=== PATIENT | female | born 1965 | race Caucasian/White ===

== ENCOUNTER 2023-11-14 15:34 | Outpatient (AMB) | payer BC, SELFPAY ==
[2023-11-14 15:57] VITALS: BP 114/76; PULSE 95; O2SAT 97; BMI 37.1
--- NOTE | 2023-11-14 15:57 | HO.NEPHOV ---
Vital Signs 11/14/23 15:57 Height 5 ft 7 in Weight 237 lb BMI 37.1 BP 114/76 Blood Pressure Location Lt brachial Position Sitting Pulse 95 Pulse Source Pulse Oximeter Pulse Oximetry (%) 97 Oxygen Delivery Method Room Air Intake Visit Reasons: CKD/ Conf Preparation Operator Required: No Accompanied by: Mother Allergies erythromycin base Allergy (Verified 11/14/23 15:59) Unknown HPI Comments Details: I had the pleasure of seeing Mili in follow-up of her hypertension. Her blood pressure is currently well controlled on current medication regimen. She has not lost significant weight. She does not have any headache, visual disturbance, chest tightness, shortness of breath, paroxysmal nocturnal dyspnea, orthopnea, pedal edema or orthostatic symptoms. She does not take any nonsteroidal anti-inflammatories. She is compliant with low-sodium diet. There were no other new active complaints at the time of this office visit. [facility]MERLY [facility] Medical History (Updated 11/14/23 @ 16:00 by Rustam Michel MD) Hypertension Surgical History (Updated 11/14/23 @ 16:00 by Pamela Zelaya MA) History of partial colectomy Hx of hysterectomy Family History (Updated 11/14/23 @ 16:01 by Pamela Zelaya MA) Paternal Grandfather Cancer Father Cancer Mother Hypertension Review of Systems Const All systems reviewed & are unremarkable except as noted in HPI and below Physical Exam Const General: comfortable and no acute distress Orientation/consciousness: patient oriented x3 HEENT Head: Yes normocephalic Mouth: Normal oral and palatal mucosa present Eyes EOM: EOMs intact bilaterally Neck Neck: Yes supple Resp Auscultation: clear to auscultation bilaterally Cardio Jugular venous distension: no JVD Rate: regular rate GI Palpation (GI): Soft to palpation Auscultation: normal bowel sounds General: Yes no CVA tenderness Back/Spine/Pelvis Back: no CVA tenderness Skin General skin exam: no rashes or lesions noted Neuro General: patient oriented x3 and moves all extremities Extrem General: Yes no pedal edema Results Reviewed Nephrology Results: No Data to Display Assessment & Plan Assessment & Plan (1) Hypertension: Code(s): I10 - Essential (primary) hypertension Category: Medical Qualifiers: Hypertension type: primary hypertension Qualified Code(s): I10 - Essential (primary) hypertension Plan Mili has hypertension for some time. She tries to maintain a low-sodium diet. He has not lost any significant weight. Her renal functions have been normal. Her blood pressure is has been at goal at home on the current medication regimen. All the workup done in the past rule out secondary etiology including Doppler of renal arteries were normal. I did not make any medication changes today. She has not known to have any proteinuria. I ordered follow-up blood work. Answered all questions. Coding Level of Care Code Est Pt Level 4 (47303) Diagnoses Primary hypertension I10 Hypertension type: primary hypertension
== END 2023-11-14 16:29 | disposition home or self-care (01) ==
PROVIDERS: PCP Internal Medicine; Visit Provider Internal Medicine Nephrology
DX: I10 Essential (primary) hypertension (principal)
CPT/HCPCS: 99214

== ENCOUNTER → 2023-11-14 15:34 | Outpatient (BNVA) | payer BC, SELFPAY | PROVIDERS: PCP Internal Medicine; Visit Provider Internal Medicine Nephrology ==

== ENCOUNTER 2024-07-23 15:06 | Outpatient (AMB) | payer BC, SELFPAY ==
[2024-07-23 15:59] VITALS: BP 138/84; PULSE 102; O2SAT 97; BMI 36.8
--- NOTE | 2024-07-23 15:59 | HO.NEPHOV ---
Vital Signs 07/23/24 15:59 Height 5 ft 7 in Weight 235 lb BMI 36.8 BP 138/84 Blood Pressure Location Lt brachial Position Sitting Pulse 102 H Pulse Source Pulse Oximeter Pulse Oximetry (%) 97 Oxygen Delivery Method Room Air Intake Visit Reasons: CKD/LVM Excellence Specialist Required: No Accompanied by: Mother Allergies erythromycin base Allergy (Verified 07/23/24 16:03) Unknown Do you need a note to return to daycare/school/sports/work: No HPI Comments Details: Mili was seen in follow-up of her hypertension. Her blood pressure is currently well controlled on current medication regimen. She has not lost significant weight. She has a lot of family stressors especially taking care of her mom. She was emotionally labile discussing this during the visit. She has a lot of knee pain and needs a knee replacement but feels she cant get it done as there is no one to take care of mom if she has to go through surgery and rehab. She is wondering whether she can take NSAID's for symptom relief( knee pain). She does not have any headache, visual disturbance, chest tightness, shortness of breath, paroxysmal nocturnal dyspnea, orthopnea, pedal edema or orthostatic symptoms. She is compliant with low-sodium diet. There were no other new active complaints at the time of this office visit. [facility] Medical History Hypertension Surgical History History of partial colectomy Hx of hysterectomy Family History Paternal Grandfather Cancer Father Cancer Mother Hypertension Review of Systems Const All systems reviewed & are unremarkable except as noted in HPI and below Physical Exam Vital Signs: Last Vital Signs Pulse 102 H 07/23/24 15:59 BP 138/84 07/23/24 15:59 Pulse Ox 97 07/23/24 15:59 Oxygen Delivery Method Room Air 07/23/24 15:59 BMI result Body Mass Index 36.8 Const General: comfortable and no acute distress Orientation/consciousness: patient oriented x3 HEENT Head: Yes normocephalic Mouth: Normal oral and palatal mucosa present Eyes EOM: EOMs intact bilaterally Neck Neck: Yes supple Resp Auscultation: clear to auscultation bilaterally Cardio Jugular venous distension: no JVD Rate: regular rate GI Palpation (GI): Soft to palpation Auscultation: normal bowel sounds General: Yes no CVA tenderness Back/Spine/Pelvis Back: no CVA tenderness Skin General skin exam: no rashes or lesions noted Neuro General: patient oriented x3 and moves all extremities Extrem General: Yes no pedal edema Results Reviewed Nephrology Results: No Data to Display Assessment & Plan Assessment & Plan (1) Hypertension: Code(s): I10 - Essential (primary) hypertension Category: Medical Qualifiers: Hypertension type: primary hypertension Qualified Code(s): I10 - Essential (primary) hypertension Plan Mili has hypertension for some time. She tries to maintain a low-sodium diet. He has not lost any significant weight. Her renal functions have been normal. Her blood pressure is has been at goal at home on the current medication regimen. All the workup done in the past rule out secondary etiology including Doppler of renal arteries were normal. I did not make any medication changes today. She has not known to have any proteinuria. I ordered follow-up blood work. Answered all questions. Orders: Orders Creatinine 8 Months I10 - Essential (primary) hypertension Blood Urea Nitrogen 8 Months I10 - Essential (primary) hypertension Electrolytes 8 Months I10 - Essential (primary) hypertension Coding Level of Care Code Est Pt Level 4 (93003) Diagnoses Primary hypertension I10 Hypertension type: primary hypertension
--- OUTSIDE RECORDS SUMMARY | 2024-07-23 18:42 | XMS_ITS | Clinical Summary ---
Author Organization [facility] Address [address] [place] [address] Phone Care Team Providers Care Food Crops Farm Hand Name Role Phone Hector Copeland MD Primary Care Provider [phone] Allergies Active Allergy Reactions Criticality Noted Date Comments Erythromycin Other (see comments) 10/14/2020 Medications Probiotic Product (PROBIOTIC-10 PO) Take 1 capsule by mouth 1 (one) time each day Active desipramine (NORPRAMIN) 50 MG tablet Take 1 tablet by mouth at bed time Active Estradiol 10 MCG tablet 1 tablet 2 (two) times a week Active Melatonin 5 MG tablet Take 1 tablet by mouth 1 (one) time each day Active losartan (COZAAR) 25 MG tablet TAKE 1 TABLET IN THE MORNING AND EVENING 180 tablet 3 10/02/2022 Active Active Problems Problem Noted Date Diagnosed Date Diverticulitis 12/22/2019 Chronic interstitial cystitis 11/06/2018 Flank pain 11/16/2017 Diverticular disease 08/17/2017 Essential hypertension 08/17/2017 Hyperlipidemia 08/17/2017 Pure hypercholesterolemia 08/17/2017 Immunizations Name Administration Dates Next Due Influenza, Quadrivalent, Preservative Free 02/17 Td, Not Adsorbed 06/28/2006 Tdap 04/30/2012 Family History Medical History Relation Comments Hypertension Father Hypertension Mother Relation Status Comments Father Alive Mother Alive Social History Tobacco Use Types Packs/Day Years Used Date Smoking Tobacco: Never Smokeless Tobacco: Never Tobacco Cessation:Counseling Given: Not Answered Alcohol Use Standard Drinks/Week Comments Yes 0 (1 standard drink = 0.6 oz pure alcohol) Alcoholic Drinks/day: Occasional social drink Comments Unknown Sex and Gender Information Value Date Recorded Sex Assigned at Not on file Legal Sex Female 5:07 PM EST Gender Identity Not on file Sexual Orientation Not on file Last Filed Vital Signs Vital Sign Reading Time Taken Comments Blood Pressure 104/70 11/08/2022 3:16 PM EDT Pulse 80 11/08/2022 3:16 PM EDT Temperature - - Respiratory Rate - - Oxygen Saturation 98% 10/15/2020 3:26 PM EDT Inhaled Oxygen Concentration - - Weight 102 kg (225 lb 12.8 oz) 10/26/2021 3:11 P M EDT Height 170.2 cm (5' 7 ) 10/01/2019 12:00 PM EDT Body Mass Index 35.37 10/01/2019 12:00 PM EDT Plan of Treatment Health Maintenance Due Date Last Done Comments Breast Cancer Screening 1965 Pneumococcal Vaccine: Pediatrics (0 to 5 Years) and At-Risk Patients (6 to 64 Years) (1 of 2 - PCV) 1969 Colorectal Cancer Screening: Annual FOBT 2012 Colorectal Cancer Screening: Colonoscopy 2012 Colorectal Cancer Screening: Sigmoidoscopy 2012 Influenza Vaccine (#1) 2024 , 02/18/2020 Hepatitis B Vaccine Aged Out No longe r eligible based on patient's age to complete this topic Insurance [facility] Care Teams Food Crops Farm Hand Relationship Specialty Start Date End Date Hector Copeland MD [address] [place] [id number] PCP - General 06/07/20
--- OUTSIDE RECORDS SUMMARY | 2024-07-23 18:42 | XMS_ITS | Encounter Summary ---
Author Organization [facility] Address [phone] [facility] [place] [address] Care Team Providers Care Superintendent Custodian Janitor Name Role Phone Hector Copeland MD Primary Care Provider [phone] Hector Copeland MD Unavailable [phone] Binta Vera NP Unavailable [phone] Rustam Michel MD Unavailable Encounter Details Date Type Department Care Team (Late st Contact Info) Description 08/20/2019 Procedure Pass [facility] Endoscopy Admitting Dept Virtual Department [address] [place] [address] [phone] Social History Tobacco Use Types Packs/Day Years Used Date Smoking Tobacco: Never Smokeless Tobacco: Never Alcohol Use Standard Drinks/Week Comments No 0 (1 standard drink = 0.6 oz pur e alcohol) Sex and Gender Information Value Date Recorded Sex Assigned at Female 06/23/2019 2:22 PM EST Gender Identity Female 06/23/2019 2:22 PM EST Sexual Orientation Straight 06/23/2019 2: 22 PM EST documented as of this encounter Plan of Treatment Upcoming Encounters Date Type Department Care Team (Late Contact Info) Description 07/24/2024 3:00 PM EST Office Visit [facility] Internal Medicine [address] [place], [place] [phone] Hector Copeland MD [address] [place], [place] [phone] 08/29/2024 1:00 PM EDT Office Visit [facility] Orthopedics & Sports Medicine [address] [place] [phone] Pancho Pierce PA-C [address] [place] [address] [place] [phone] documented as of this encounter Visit Diagnoses Not on filedocumented in this encounter Additional Health Concerns Infection Onset Date Last Indicated Resolved Time CoV-Risk Comment:Per Ambulatory Triage Form 06/10/2021 06/10/202106/11 4:30 PM EST CoV-Exposed Comment:Positive COVID-19 06/10/2021 06/10/2021 06/11/2021 4:3 0 PM EST COVID-19 06/10/2021 06/10/2021 07/01/2021 1:24 AM EST CoV-Risk 05/14/2022 05/14/2022 05/25/2022 1:22 AM EST Assessment Noted Time PHQ-2 Depression Total Score: 0 12/07/19 1:29 PM EDT documented as of this encounter Care Teams Superintendent Custodian Janitor Relationship Specialty Start Date End Date Hector Copeland MD [address] [place] [address] PCP - General 03/12/17 Hector Copeland MD [address] [place] [address] Insurance Assigned Provider 09/01/23 Binta Vera NP [address] [place] [address] [phone] Gynecology 12/06/18 Rustam Michel MD [address] [place] [address] Nephrology 12/06/18 documented as of this encounter Additional Source Comments The information contained in this document represents components of the legal health record. It is not the complete legal health record.[facility]
--- OUTSIDE RECORDS SUMMARY | 2024-07-23 18:42 | XMS_ITS | Encounter Summary ---
Author Organization [facility] Address [address] [facility] [address] [place] [address] Phone Care Team Providers Care Intermodal Dispatcher Name Role Phone Hector Copeland MD Primary Care Provider [phone] Reason for Visit * Reason Comments Med Refill Encounter Details Date Type Department Care Team ([facility] st Contact Info) Description 09/19/2023 Refill [facility] [address] [facility] [address] [place] [address] Isidoro Stuart MD [address] [facility] [address] [place] [address] Social History Tobacco Use Types Packs/Day Years Used Date Smoking Tobacco: Never Smokeless Tobacco: Never Alcohol Use Standard Drinks/Week Comments Yes 0 (1 standard drink = 0.6 oz pure alcohol) Alcoholic Drinks/day: Occasional social drink Comments Unknown Sex and Gender Information Value Date Recorded Sex Assigned at Not on file Legal Sex Female 5:07 PM EST Gender Identity Not on file Sexual Orientation Not on file documented as of this encounter Plan of Treatment Not on file documented as of this encounter Visit Diagnoses Not on filedocumented in this encounter Care Teams Intermodal Dispatcher Relationship Specialty Start Date End Date Hector Copeland MD [address] [place], [place] [phone] PCP - General 06/07/20 documented as of this encounter
--- OUTSIDE RECORDS SUMMARY | 2024-07-23 18:42 | XMS_ITS | Encounter Summary ---
Author Organization [facility] Address [address] [facility] [address] [place] [address] [place] [address] Phone Care Team Providers Care Process Equipment Operator Name Role Phone Hector Copeland MD Primary Care Provider [phone] Reason for Visit * Reason Onset Date Comments RX refill Losartan 10/17/2021 Encounter Details Date Type Department Care Team ([facility] st Contact Info) Description 10/17/2021 Telephone [facility] [address] [facility] [address] [place] [address] Estephania Daniel RX refill Losartan Social History Tobacco Use Types Packs/Day Years [...] on file documented as of this encounter Miscellaneous Notes * Telephone Encounter - Isidoro Stuart MD - 10/19/2021 4:08 PM EDT Pls tell her I sent it in * Telephone Encounter - Estephania Daniel - 10/17/2021 12:08 PM EDT Pt called requesting that a refill on her Losartan be sent to [facility]. documented in this encounter Plan of Treatment Not on file documented as of this encounter Visit Diagnoses Not on filedocumented in this encounter Care Teams Process Equipment Operator Relationship Specialty Start Date End Date Hector Copeland MD [address] [place] [address] PCP - General 06/07/20 documented as of this encounter
--- OUTSIDE RECORDS SUMMARY | 2024-07-23 18:42 | XMS_ITS | Encounter Summary ---
Author Organization [facility] Address [phone] [facility] [place] [address] Care Team Providers Care Cradle Placer Name Role Phone Hector Copeland MD Unavailable [phone] Hector Copeland MD Primary Care Provider [phone] Joyce Mahan CHARGEMASTER ANALYST Unavailable Kourtney Gardiner CHARGEMASTER ANALYST Unavailable [phone] Joselin Chowdhury MD Unavailable Cecilia Rudolph CHARGEMASTER ANALYST Unavailable Hector Copeland MD Unavailable [phone] Binta Vera CHARGEMASTER ANALYST Unavailable Rustam Michel MD Unavailable Encounter Details Date Type Department Care Team (Latest Contact Info) Description 04/10/2017 Transcribe Orders [facility] [address] [place] [address] Rustam Michel MD [address] [place] [address] [phone] Essential hypertension, benign (Primary Dx) Social History Tobacco Use Types Packs/Day Years Used Date Smoking Tobacco: Never Assessed Sex and Gender Information Value Date Recorded Sex Assigned at Female 06/23/2019 2:22 PM EST Gender Identity Female 06/23/2019 2:22 PM EST Sexual Orientation Straight 06/23/2019 2: 22 PM EST documented as of this encounter Plan of Treatment Upcoming Encounters Date Type Department Care Team (Late st Contact Info) Description 07/24/2024 3:00 PM EST Office Visit [facility] Internal Medicine [address] [place] [address] Hector Copeland MD [address] [place], [place] [email or web address] 08/29/2024 1:00 PM EDT Office Visit [facility] Orthopedics & Sports Medicine [address] [place] [address] Pancho Pierce PA-C [address] [place] [address] [place] [address] [email or web address] documented as of this encounter Visit Diagnoses Diagnosis Essential hypertension, benign- Primary Screening for human immunodeficiency virus- Primary Special screening examination for other specified viral diseases documented in this encounter Additional Health Concerns Infection Onset Date Last Indicated Resolved Time CoV-Risk Comment:Per Ambulatory Triage Form 06/10/2021 06/10/202106/11 4:30 PM EST CoV-Exposed Comment:Positive COVID-19 06/10/2021 06/10/2021 06/11/2021 4:3 0 PM EST COVID-19 06/10/2021 06/10/2021 07/01/2021 1:24 AM EST CoV-Risk 05/14/2022 05/14/2022 05/25/2022 1:22 AM EST documented as of this encounter Care Teams Cradle Placer Relationship Specialty Start Date End Date Hector Copeland MD [address] [place], [place] PCP - General 03/12/17 Hector Copeland MD [address] [place], [place] Historical LMR Provider 03/17/17 12/05/18 Joyce Mahan NP [address] [place] [address] Historical LMR Provider 03/17/17 Kourtney Gardiner NP [address] [place] [address] Historical LMR Provider 03/17/17 12/05/18 Joselin Chowdhury MD [address] [place] [address] Orthopedics & Sports Medicine, [place] [address] Historical LMR Provider 03/17/1712/05 Cecilia Rudolph NP [address] [place] [address], [address] [place] [address] Historical LMR Provider 03/17/1712/05 Hector Copeland MD [address] [place] [address] Insurance Assigned Provider 09/01/23 Binta Vera NP [address] [place] [address] Gynecology 12/06/18 Rustam Mihcel MD [address] [place] [address] Nephrology 12/06/18 documented as of this encounter Additional Source Comments The information contained in this document represents components of the legal health record. It is not the complete legal health record.[facility]
--- OUTSIDE RECORDS SUMMARY | 2024-07-23 18:42 | XMS_ITS | Data Portability ---
Author Organization [facility], , [facility] Address [address] [place] [address] Assessment No assessment recorded. Plan of Treatment Reminders Order Date Submit Date Provider Last Modified By Organization Details Last Modified Time Details Appointments None record ed. Lab None record ed. Referral None record ed. Procedures None record ed. Surgeries None record ed. Imaging None record ed. Medication Orders None record ed. Patient TargetsNo targets recorded. Patient InstructionsNo instructions recorded. Reason for Referral None Reported. Procedures Surgical History Date Name Laterality Status Provider Name and Address Organization Details Recorded Time 0 Samantha - Colonoscopy completed Ferdinand Singh MD [address] [place] [address], [id number], [facility] 11/26/2019 14:12:14 5 Kody - Colonoscopy completed Jm Gates MD [address] [place] [address], [phone], [facility] 02/26/2015 08:08:55 Imaging Results None recorded. Procedure Notes None recorded. Medical Equipment None Reported. Allergies No known drug allergies Medications Name Sig Start Date Stop Date Status Note LastModified by Organization Details LastModified Time cyclobenzaprine 10 mg tablet active Not Available Not Available Not Available prednisone 10 mg tablet active Not Available Not Available Not Available estradiol 0.05 mg/24 hr weekly transdermal patch active Not Available Not Avai lable Not Available metronidazole 500 mg tablet active Not Available Not Available No t Available butalbital-acetam inophen-caffeine 50 mg-325 mg-40 mg tablet active Not Available Not Available No t Available lidocaine-priloca ine 2.5 %-2.5 % topical cream active Not Available Not Availabl e Not Available estradiol 1 mg tablet active Not Available Not Available Not Available desipramine 50 mg tablet active Not Available Not Available Not Available losartan 25 mg tablet active Not Available Not Available Not Available diclofenac sodium 75 mg tablet,delayed release active Not Available Not Available Not Available levofloxacin 500 mg tablet active Not Available Not Available No t Available metoclopramide 10 mg tablet active Not Available Not Available No t Available oxycodone 5 mg tablet active Not Available Not Available Not Available magnesium active Not Available Not Bernie ilable Not Available Fioricet active Not Available Not Avai lable Not Available estradiol 10 mcg vaginal tablet active Not Available Not Availab le Not Available Yuvafem active Not Available Not Avail able Not Available Plenvu 140 gram-9 gram-5.2 gram powder packs active Not Available Not Available Not Available Vitals None Recorded Social History None recorded. Functional Status None recorded. Mental Status None recorded. Family History Nothing Reported. Medical History No medical history recorded. Gynecological HistoryNo gynecological history recorded. Obstetrics History GPAL:G 0 P 0 0 0 0 Past Encounters Encounter ID Performer Location Encounter Start Date Encounter Closed Date Diagnosis/Indication Diagnosis SNOMED-CT Code Diagnosis ICD10 Code Diagnosis Note [id number] [facility], [address] [address] 02/26/2015 06:42:41 02/26/2015 13:44:58 [id number] Flora Clarke RN [facility], [address] [address] 11/26/2019 12:25:59 11/26/2019 14:38:36 Health Concerns Section Related Observation LastModified by Organization Detai ls LastModified Time None Recorded Concern Status LastModified by Organization Details LastModified Time None Recorded Advance Directives Directive None Recorded Payers Encounter Date Sequence Insurance Name Policy Number Policy Louie Covered Member ID Louie Member ID Guarantor Name 02/26/2015 1 [facility]: [facility] [id number] Mili A Grzegorz [id number] Mili Grzegorz 11/26/2019 1 [facility]: [facility] ([facility] [id number] Mili A Grzegorz [id number] Mili Grzegorz OBGyn Episode No OBEpisode recorded.
--- OUTSIDE RECORDS SUMMARY | 2024-07-23 18:42 | XMS_ITS | Encounter Summary ---
Author Organization [facility] Address [phone] [facility] [place] [address] Care Team Providers Care Insert Molding Operator Name Role Phone Hector Copeland MD Primary Care Provider [phone] Hector Copeland MD Unavailable [phone] Binta Vera NP Unavailable [phone] Rustam Michel MD Unavailable Encounter Details Date Type Department Care Team (Late st Contact Info) Description 12/22/2019 Procedure Pass OR Admitting Dept - Virtual Department [address] [place] [address] [phone] Social History Tobacco Use Types Packs/Day Years [...] Description 07/24/2024 3:00 PM EST Office [facility] Internal Medicine [address] [place], [place] [phone] Hector Copeland MD [address] [place], [place] [phone] 08/29/2024 1:00 PM EDT Office Visit [facility] Orthopedics & Sports Medicine [address] [place] [address] Pancho Pierce PA-C [address] [place] [address] [place] [address] documented as of this encounter Visit Diagnoses [...] documented as of this encounter Care Teams Insert Molding Operator Relationship Specialty Start Date End Date Hector Copeland MD [address] [place] [address] PCP - General 03/12/17 Hector Copeland MD [address] [place] [address] 92254 Insurance Assigned Provider 09/01/23 Binta Vera NP [address] [place] [address] [phone] Gynecology 12/06/18 Rustam Michel MD [address] [place] [address]25 Nephrology 12/06/18 documented as of this encounter Additional Source Comments The information contained in this document represents components of the legal health record. It is not the complete legal health record.[facility]
--- OUTSIDE RECORDS SUMMARY | 2024-07-23 18:42 | XMS_ITS | Clinical Summary ---
Author Organization [facility] Address [phone] [address] [place] [address] Care Team Providers Care Manager Billing Name Role Phone Hector Copeland MD Primary Care Provider [phone] Hector Copeland MD Unavailable [phone] Binta Vera NP Unavailable [phone] Rustam Michel MD Unavailable Allergies No known active allergies Medications Medication Sig Dispensed Refills Start Date End Date Status losartan (COZAAR) 25 MG tablet 1 tablet Orally Twice a day Active YUVAFEM 10 mcg Tab 2 (two) times a week. 10/23/2017 Active cholecalciferol (VITAMIN D3) 2,000 unit capsule Take 2,000 Units by mouth daily. Active diclofenac sodium (VOLTAREN) 1 % Gel Apply 4 g topically 2 (two) times a day. 100 g 04/05/2020 Active Additional Information Patient not taking.Reported on 12/18/2023 MAGNESIUM GLYCINATE ORALIndications:90 mg per capsule Take 2 capsules by mouth nightly at bedtime. Indications: 90 mg per capsule Active acetaminophen (TYLENOL) 650 MG CR tablet Take 1,300 mg by mouth every other day. More while working and while being more active Active butalbital-acetamin ophen-caffeine (FIORICET, ESGIC) 50-325-40 mg per tablet Take 1 tablet by mouth 2 (two) times a day as needed for pain (specific location in comments). 30 tablet 4 05/27/2024 Active Hospital, Clinic, or Other Facility Administered Medication Ordered Dose Route Frequency Start Date End Date Status lidocaine (XYLOCAINE) 1% injection 3 mL 3 mL Infil Once 04/29/2024 07/28/2024 Active lidocaine (XYLOCAINE) 1% injection 4 mL 4 mL Infil Once 04/29/2024 07/28/2024 Active triamcinolone acetonide (KENALOG-40) 40 mg/mL injection 40 mg 40 mg IM Once 04/29/2024 07/28/2024 Active Active Problems Problem Noted Date Diagnosed Date Diverticulitis 12/22/2019 Interstitial cystitis 11/06/2018 Flank pain 11/16/2017 Diverticulosis 08/17/2017 Essential hypertension 08/17/2017 Hyperlipidemia 08/17/2017 Pure hypercholesterolemia 08/17/2017 Encounters Date Type Department Care Team Description 07/18/2024 Telephone [facility] Internal Medicine [address] [place] [address] Hector Copeland MD Review of Orders 04/29/2024 1:30 PM EST Office Visit [facility] Orthopedics & Sports Medicine [address] [place] [address] Nikita Saldaña PA-C Bombardier, Mark, PA-C Primary osteoarthritis of left knee (Primary Dx) from Last 3 Months Immunizations Name Administration Dates Next Due Influenza Quadrivalent MDCK Preservative Free IM 03/14/2023 Influenza Quadrivalent Preservative Free IM 02/25,02/18/2020 Influenza Trivalent MDCK Preservative Free IM MMR 04/12/2011 Td (adult) 5 Lf Tetanus Toxoid, PF, Adsorbed Td (adult), not adsorbed 06/28/2006 Tdap 04/30/2012 Zoster recombinant 07/31/2021,03/09/2021 Family History Medical History Relation Comments Lung cancer Father Hypertension Mother Relation Status Comments Father Mother Alive Social History Tobacco Use Types Packs/Day Years Used Date Smoking Tobacco: Never Smokeless Tobacco: Never Tobacco Cessation:Counseling Given: Not Answered Alcohol Use Standard Drinks/Week Comments Yes 0 (1 standard drink = 0.6 oz pur e alcohol) 2 x year Child or Family Care Answer Date Record ed Do you have problems with on e of the following making it difficult for you to work, study, or receive health care? No 07/18/2024 Education Answer Date Recorded Are you interested in help w ith more adult education (for example, completing high school, GED, job training, learning the Welsh language, technical skills, or developing parenting skills)? No 07/18/2024 Are you concerned about learning? Not on file 07/18/2024 No 07/18/2024 Yes 07/18/2024 Food Answer Date Recorded Within the past 6 months we worried whether our food would run out before we got money to buy more. Never True 07/18/2024 Within the past 6 months the food we bought just didn't last and we didn't have enough money to get more. Never True Residential Stability Answer Date Recor ded What is your housing situation today? I have eric yates 07/18/2024 How many times have you move d in the past 12 months? Zero (I did not move) 07/18/2024 Paying for Meds Answer Date Recorded Do you have trouble paying for medicines? No 07/18/2024 Paying Utility Bills Answer Date Record ed Do you have trouble paying your heating or elect ricity bill? No 07/18/2024 Transportation Answer Date Recorded Has the lack of transportati on kept you from medical appointments or from getting medications? No 07/18/2024 Digital Access Answer Date Recorded No 07/18/2024 Yes 07/18/2024 Do you have reliable internet access at home? Ye s 07/18/2024 Do you have a device (e.g., phone, tablet, computer) with a working camera? Yes 07/18/2024 Intimate Partner Violence Answer Date R ecorded Denied Basic Needs Not on file 07/18/2024 In the past 12 months have y ou been in a relationship with a person who hurts, threatens, or tries to control you? No 07/18/2024 Worried food would run out Not on file 07/18 In the past 12 months have y ou been in a relationship with a person who hurts, threatens, or tries to control you? No 07/18/2024 Sex and Gender Information Value Date Recorded Sex Assigned at Female 06/23/2019 2:22 PM EST Gender Identity Female 06/23/2019 2:22 PM EST Sexual Orientation Straight 06/23/2019 2: 22 PM EST Last Filed Vital Signs Vital Sign Reading Time Taken Comments Blood Pressure 130/78 01/17/2024 10:39 AM EDT Pulse 93 01/17/2024 10:39 AM EDT Temperature 36.4 ??C (97.5 ??F) 01/17/2024 1 0:39 AM EDT Respiratory Rate 12 01/17/2024 10:3 9 AM EDT Oxygen Saturation 98% 01/17/2024 10: 39 AM EDT Inhaled Oxygen Concentration - - Weight 106.7 kg (235 lb 3.2 oz) 024 10:39 AM EDT Height 167.9 cm (5' 6.1 ) 01/17/2024 10 :39 AM EDT Body Mass Index 37.85 01/17/2024 10:39 AM EDT Plan of Treatment Upcoming Encounters Date Type Department Care Team (Late st Contact Info) Description 07/24/2024 3:00 PM EST Office Visit [facility] Internal Medicine [address] [place] [address] Hector Copeland MD [address] [place] [address] 08/29/2024 1:00 PM EDT Office Visit [facility] Orthopedics & Sports Medicine [address] [place] [address] Pancho Pierce PA-C [address] [place] [address] [place] [address] Health Maintenance Due Date Last Done Comments HEPATITIS B SCREENING 1981 HEPATITIS C SCREENING 1981 HIV ONE-TIME SCREENING (18-65 YEARS) 1981 COLOGUARD 2008 FIT TEST 2008 FOBT 2008 SIGMOIDOSCOPY 2008 VIRTUAL COLONOSCOPY 2008 PNEUMOCOCCAL VACCINES (50+ years) (1 of 1 - PCV) 2013 PAP SMEAR 03/20/2022 03/20/2017, 09/02/2013 COVID-19 VACCINE ( season) 2024 08/05/2020 BLOOD PRESSURE 07/19/2024 01/17/2024 CREATININE LEVEL 12/16/2024 12/17/2023, 11/2022, 10/12/2021, Additional history exists POTASSIUM LEVEL 12/16/2024 12/17/2023, 08/0 11/2022, 10/12/2021, Additional history exists DEPRESSION SCREENING 07/18/2025 07/18/2024 MAMMOGRAM 12/04/2025 12/05/2023, 070 01/2019, 11/23/2016 SCREENING FOR DIABETES 12/16/2026 12/17/2023 LIPID PANEL 12/16/2028 12/17/2023, 11/25, 12/09/2018, Additional history exists COLONOSCOPY 11/25/2029 11/26/2019, 02/26/2015 COLORECTAL CANCER SCREENING 11/25/2029 Adult Td,Tdap Booster 01/16/2034 01/17/2024 , 04/30/2012, 06/28/2006 RSV VACCINE (1 - 1-dose 75+ series) 2038 ZOSTER VACCINES Completed 07/31/2021, 03/09/2021 SMOKING STATUS SCREENING (Once After 26 Yrs) Completed 01/17/2024 INFLUENZA VACCINE Completed 03/15/2024, , 03/09/2021, Additional history exists HEPATITIS A VACCINES Aged Out No long er eligible based on patient's age to complete this topic HEPATITIS B VACCINES Aged Out No long er eligible based on patient's age to complete this topic HIB VACCINES Aged Out No longer eligi ble based on patient's age to complete this topic MENINGOCOCCAL VACCINES (ACWY) Aged Out No longer eligible based on patient's age to complete this topic Medical Devices Not on file Procedures Procedure Name Priority Date/Time Associated Diagnosis Comments LIPID PANEL Routine 12/17/2023 8:41 AM EDT Benign essential hypertension COMPREHENSIVE METABOLIC PANEL Routine 12/17/2023 8:41 AM EDT Chronic pain of left knee Benign essential hypertension HM MAMMOGRAPHY Routine 12/05/2023 COLONOSCOPY FOR RESULT ENTRY ONLY Routine 11/26/2019 PAP SMEAR FOR RESULT ENTRY ONLY Routine 03/20/2017 from Last 3 Months or Most Recently Relevant to Health Maintenance Results * (ABNORMAL) Comprehensive metabolic panel (12/17/2023 8:41 AM EDT) SODIUM 141 133 - 146 mmol/L [facility] POTASSIUM 4.4 3.3 - 5.1 mmol/L [facility] CHLORIDE 104 96 - 108 mmol/L [facility] CO2 26 21 - 35 mmol/L [facility] BUN 16 6 - 19 mg/dL [facility] CREATININE 0.60 0.5 - 1.5 mg/dL [facility] GLUCOSE 101(H) 70 - 99 mg/dL [facility] ALBUMIN 4.1 3.9 - 4.8 g/dL [facility] TOTAL PROTEIN 6.9 6.5 - 8.0 g/dL [facility] CALCIUM 9.4 8.4 - 10.3 mg/dL [facility] ALKALINE PHOSPHATASE 49 39 - 117 U/L [facility] TOTAL BILIRUBIN 1.2 0.0 - 1.2 mg/dL [facility] AST 21 0 - 37 U/L [facility] ALT 16 0 - 40 U/L [facility] GLOBULIN 2.8 1 - 4.8 g/dL [facility] EGFR 103 >59 mL/min/1.7 3m2 [facility] Comment:Estimated glomerular filtration rate calculated using the CKD-EPI refit equation. ANION GAP 15 10 - 20 mmol/L [facility] Blood 12/17/2023 8:41 AM EDT 12/17/2023 8:46 AM EDT Hector Copeland MD LAB BLOOD ORDERABLES [facility] [address] [place] [address] * (ABNORMAL) Lipid panel (12/17/2023 8:41 AM EDT) HDL 64 mg/dL [facility] Comment: ? Interpretation <40 mg/dL: Low HDL cholesterol (major risk factor for CHD) Greater than or equal to 60 mg/dL: High HDL cholesterol ( negative risk factor for CHD) HDL - cholesterol is affected by a number of factors, e.g. smoking, excerise, hormones, sex and age. CHOLESTEROL 229 0 - 240 mg/dL [facility] TRIGLYCERIDES 117 30 - 160 mg/dL [facility] LDL 142(H) 50 - 129 mg/dL [facility] Comment: LDL levels in terms of risk for coronary heart disease: <100 mg/dL: Optimal 100-129 mg/dL: Near or above optimal 130-159 mg/dL: Borderline high 160-189 mg/dL: High >190 mg/dL: Very High CARDIAC RISK RATIO 3.6 3.3 - 4.4 C [facility] Blood 12/17/2023 8:41 AM EDT 12/17/2023 8:46 AM EDT Hector Copeland MD LAB BLOOD ORDERABLES [facility] [address] [place] [address] * MAMMOGRAPHY FOR RESULT ENTRY ONLY (12/05/2023) Mammogram BIRADS 1 Historical Provider MD SURESH CABALLERO E * COLONOSCOPY FOR RESULT ENTRY ONLY (11/26/2019) Historical Provider MD SURESH CABALLERO E * PAP SMEAR FOR RESULT ENTRY ONLY (03/20/2017) Pap smear NILM, HPV negative Historical Provider MD SURESH Ortiz from Last 3 Months or Most Recently Relevant to Health Maintenance Advance Directives Documents on File Type Date Recorded 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 12/24/2019 10:40 AM * Full Code (Presumed) (Latest Code Status on File) Date Activated Date Inactivated Comments 12/22/2019 1:09 PM * Full Code (Presumed) Date Activated Date Inactivated Comments 12/22/2019 6:15 AM 12/22/2019 1:09 PM Care Teams Manager Billing Relationship Specialty Start Date End Date Hector Copeland MD [address] [place] [address] [email or web address] PCP - General 03/12/17 Hector Copeland MD [address] [place] [address] [email or web address] Insurance Assigned Provider 09/01/23 Binta Vera NP [address] [place] [address] Gynecology 12/06/18 Rustam Michel MD [address] [place] [address] Nephrology 12/06/18 Additional Source Comments The information contained in this document represents components of the legal health record. It is not the complete legal health record.[facility]
--- OUTSIDE RECORDS SUMMARY | 2024-07-23 18:42 | XMS_ITS | Encounter Summary ---
Author Organization [facility] Address [phone] [address] [place] [address] Care Team Providers Care Highway Technician Name Role Phone Hector Copeland MD Primary Care Provider [phone] Hector Copeland MD Unavailable [phone] Binta Vera NP Unavailable [phone] Rustam Michel MD Unavailable Encounter Details Date Type Department Care Team (Latest Contact Info) Description 11/19/2019 Transcribe Orders Virtual Department [address] [place] [address] Ferdinand Singh MD [address] [place] [address] [phone] [email or web address] Encounter for pre-operative laboratory testing (Primary Dx) Social History Tobacco Use Types [...] Upcoming Encounters Date Type Department Care Team ( Contact Info) Description 07/24/2024 3:00 PM EST Office Visit [facility] Internal Medicine [address] [place] [address] Hector Copeland MD [address] [place] [address] [email or web address] 08/29/2024 1:00 PM EDT Office Visit [facility] Orthopedics & Sports Medicine [address] [place] [address] Pancho Pierce PA-C [address] [place] [address] [place] [address] [email or web address] documented as of this encounter Results * COVID-19 PCR Order (11/23/2019 9:20 AM EDT) Specimen Source NASOPHARYNGEAL SWAB (SENIOR PRODUCTION PLANNER) [facility] COVID Testing Status In-house testing being performed [facility] Other 11/23/2019 9:20 AM EDT 11/23/2019 10:05 AM EDT Ferdinand Singh MD BODY FLUIDS AND STOO LS ORDERABLES Performing Organization Address City/State/[facility] Co de Phone Number [facility] [address] [place] [address] documented in this encounter Visit Diagnoses Diagnosis Encounter for pre-operative laboratory testing- Primary Screening for human immunodeficiency virus- Primary [...] documented as of this encounter Care Teams Highway Technician Relationship Specialty Start Date End Date Hector Copeland MD [address] [place] [address] [email or web address] PCP - General 03/12/17 Hector Copeland MD [address] [place] [address] [email or web address] Insurance Assigned Provider 09/01/23 Binta Vera NP [address] [place] [address] [phone] Gynecology 12/06/18 Rustam Michel MD [address] [place] [address] Nephrology 12/06/18 documented as of this encounter Additional Source Comments The information contained in this document represents components of the legal health record. It is not the complete legal health record.[facility]
--- OUTSIDE RECORDS SUMMARY | 2024-07-23 18:42 | XMS_ITS | Encounter Summary ---
Author Organization [facility] Address [phone] On license of [place] [address] Care Team Providers Care Locator Name Role Phone Hector Copeland MD Primary Care Provider [phone] Hector Copeland MD Unavailable [phone] Binta Vera NP Unavailable [phone] Rustam Michel MD Unavailable Reason for Visit * Reason Onset Date Comments Review of Orders 07/18/2024 Encounter Details Date Type Department Care Team (Late st Contact Info) Description 07/18/2024 Telephone [facility] Internal Medicine [address] [place], [place] [phone] Hector Copeland MD [address] [place] [address] [email or web address] Review of Orders Social History Tobacco Use Types Packs/Day Years [...] high school, GED, job training, learning the [place] language, technical skills, or developing parenting skills)? [...] your housing situation today? I have eric sing 07/18/2024 How many times have you move [...] PM EST documented as of this encounter Progress Notes * Majo Maldonado CMA - 07/18/2024 10:07 AM EST Images from the original note were not included. See below orders. Please advise. documented in this encounter Plan of Treatment Upcoming Encounters Date Type Department Care Team (Late st Contact Info) Description 07/24/2024 3:00 PM EST Office Visit [facility] Internal Medicine [address] [place], [place] [phone] Hector Copeland MD [address] [place] [address] 08/29/2024 1:00 PM EDT Office Visit [facility] Orthopedics & Sports Medicine [address] [place] [address] Pancho Pierce PA-C [address] [place] [address] [place] [id number] documented as of this encounter Visit Diagnoses Not on filedocumented in this encounter Additional Health Concerns Assessment Noted Time PHQ-2 Depression Total Score: 0 07/18/19 25 8:31 AM EST documented as of this encounter Care Teams Locator Relationship Specialty Start Date End Date Hector Copeland MD [address] [place] [address] PCP - General 03/12/17 Hector Copeland MD [address] [place], [place] [phone] Insurance Assigned Provider 09/01/23 Binta Vera NP [address] [place] [phone] Gynecology 12/06/18 Rustam Michel MD [address] [place] [address] Nephrology 12/06/18 documented as of this encounter Additional Source Comments The information contained in this document represents components of the legal health record. It is not the complete legal health record.[facility]
== END 2024-07-23 16:31 | disposition home or self-care (01) ==
PROVIDERS: PCP Internal Medicine; Referring Provider Internal Medicine; Visit Provider Internal Medicine Nephrology
DX: I10 Essential (primary) hypertension (principal)
CPT/HCPCS: 99214

== ENCOUNTER → 2024-07-23 15:06 | Outpatient (BNVA) | payer BC, SELFPAY | PROVIDERS: PCP Internal Medicine; Visit Provider Internal Medicine Nephrology ==

== ENCOUNTER 2025-05-15 15:03 | Outpatient (AMB) | payer BC, SELFPAY ==
--- NOTE | 2025-05-15 15:11 | HO.NEPHOV_ITS ---
Vital Signs 05/15/25 15:12 Height 5 ft 7 in Weight 219 lb BMI 34.3 BP 140/80 H Blood Pressure Location Lt brachial Position Sitting Pulse 92 Pulse Source Pulse Oximeter Pulse Oximetry (%) 98 Oxygen Delivery Method Room Air Intake Visit Reasons: 8 Mon [facility] Managed Care Director Required: No Accompanied by: Mother Allergies erythromycin base Allergy (Verified 05/15/25 15:12) Unknown HPI Comments Details: Mili was seen in follow-up of her hypertension. Her blood pressure is c urrently well controlled on current medication regimen. She has not lost significant weight. She had a lot of family stressors especially taking care of her mom. She has a lot of knee pain and needs a knee replacement. She does not have any headache, visual disturbance, chest tightness, shortness of breath, paroxysmal nocturnal dyspnea, orthopnea, pedal edema or orthostatic symptoms. She is compliant with low-sodium diet. She monitors her BP at home and has been close to goal. There were no other new active complaints at the time of this office visit. [facility] Medical History Hypertension Surgical History History of partial colectomy Hx of hysterectomy Family History Paternal Grandfather Cancer Father Cancer Mother Hypertension Review of Systems Const All systems reviewed & are unremarkable except as noted in HPI and below Physical Exam Vital Signs: Last Vital Signs Pulse 92 05/15/25 15:12 BP 140/80 H 05/15/25 15:12 Pulse Ox 98 05/15/25 15:12 Oxygen Delivery Method Room Air 05/15/25 15:12 BMI result Body Mass Index 34.3 Const General: comfortable and no acute distress Orientation/consciousness: patient oriented x3 HEENT Head: Yes normocephalic Mouth: Normal oral and palatal mucosa present Eyes EOM: EOMs intact bilaterally Neck Neck: Yes supple Resp Auscultation: clear to auscultation bilaterally Cardio Jugular venous distension: no JVD Rate: regular rate GI Palpation (GI): Soft to palpation Auscultation: normal bowel sounds General: Yes no CVA tenderness Back/Spine/Pelvis Back: no CVA tenderness Skin General skin exam: no rashes or lesions noted Neuro General: patient oriented x3 and moves all extremities Extrem General: Yes no pedal edema Assessment & Plan Assessment & Plan (1) Hypertension: Code(s): I10 - Essential (primary) hypertension Category: Medical Qualifiers: Hypertension type: primary hypertension Qualified Code(s): I10 - Essential (primary) hypertension Plan Mili has hypertension for some time. She tries to maintain a low-sodium diet. He has not lost any significant weight. Her renal functions have been normal. Her blood pressure is has been at goal at home on the current medication regimen. All the workup done in the past rule out secondary etiology including Doppler of renal arteries were normal. I did not make any medication changes today. She has not known to have any proteinuria. I ordered follow-up blood work. Answered all questions. Medications: Refilled losartan 25 mg PO BID 180 tabs 3RF Coding Level of Care Code Est Pt Level 4 (26771) Diagnoses Primary hypertension I10 Hypertension type: primary hypertension
[2025-05-15 15:12] VITALS: BP 140/80; PULSE 92; O2SAT 98; BMI 34.3
--- OUTSIDE RECORDS SUMMARY | 2025-05-15 16:18 | XMS_ITS | Encounter Summary ---
Author Organization [facility] Address [address] [facility] [address] [place] [phone] Phone Care Team Providers Care Utilization Management Nurse Name Role Phone Hector Copeland MD Primary Care Provider Reason for Visit * Reason Comments Med Refill Encounter Details Date Type Department Care Team ([facility] st Contact Info) Description 09/19/2023 Refill [facility] [address] [facility] [address] [place] [address] Isidoro Stuart MD [address] [facility] [address] [place] [address] Social History Tobacco Use Types [...] on filedocumented in this encounter Care Teams Utilization Management Nurse Relationship Specialty Start Date End Date Hector Copeland MD [address] [place], [place] [phone] PCP - General 06/07/20 documented as of this encounter
--- OUTSIDE RECORDS SUMMARY | 2025-05-15 16:18 | XMS_ITS | Encounter Summary ---
Author Organization [facility] Address [address] [place] [address] Phone Care Team Providers Care Chemicals Distiller Name Role Phone Hector Copeland MD Primary Care Provider [phone] Reason for Visit * Reason Onset Date Comments RX refill Losartan 10/17/2021 Encounter Details Date Type Department Care Team ([facility] st Contact Info) Description 10/17/2021 Telephone [facility] [address] [facility] [address] [place] [address] Estephania Daniel Social History Tobacco Use Types Packs/Day Years [...] refill on her Losartan be sent to [facility]. documented in this encounter Plan of Treatment Not on file documented as of this encounter Visit Diagnoses Not on filedocumented in this encounter Care Teams Chemicals Distiller Relationship Specialty Start Date End Date Hector Copeland MD [address] [place] [address] PCP - General 06/07/20 documented as of this encounter
--- OUTSIDE RECORDS SUMMARY | 2025-05-15 16:18 | XMS_ITS | Clinical Summary ---
Author Organization [facility] Address [address] [place] [address] Phone Care Team Providers Care Judicial Law Clerk Name Role Phone Hector Copeland MD Primary Care Provider [phone] Allergies Active Allergy Reactions Criticality Noted Date [...] Noted Date Diagnosed Date Diverticulitis 12/22/2019 Chronic primary bladder pain syndrome 11/06/2018 Flank pain 11/16/2017 Diverticular disease 08/17/2017 Essential hypertension 08/17/2017 Hyperlipidemia 08/17/2017 Pure hypercholesterolemia 08/17/2017 Immunizations Immunization Administration Dates Next Due Influenza, Quadrivalent, Preservative [...] Last Done Comments Breast Cancer Screening 1965 Colorectal Cancer Screening: Annual FOBT 2012 Colorectal Cancer Screening: Colonoscopy 2012 Colorectal Cancer Screening: Sigmoidoscopy 2012 Pneumococcal Vaccine: 50+ Years (1 of 1 - PCV) 2013 Influenza Vaccine (#1) 2025 , 02/18/2020 Hepatitis B Vaccine Aged Out No longe r eligible based on patient's age to complete this topic Insurance [address] [address] Care Teams Judicial Law Clerk Relationship Specialty Start Date End Date Hector Copeland MD [address] [place] [id number] PCP - General 06/07/20
--- OUTSIDE RECORDS SUMMARY | 2025-05-15 16:18 | XMS_ITS | Patient Health Record ---
[facility] Address [address] [place] [address] Care Team Providers Care Developmental Therapist Name Role Phone Hector Copeland MD Primary Care Provider Unavaila ble Black, Abbi Unavailable [phone] Reason For Referral No Information Medications Medication SIG (Take, Route, Frequency, Duration) Notes Start Date End Date Status Yuvafem 10 MCG 1 tablet Vaginal Active Losartan Potassium 25 MG 1 tablet Orally Once a day; Duration: 30 day(s) Active Vogovmcutt-VWQ-Sgvrmzdy 50-325-40 MG 1 capsule as needed Orally Active Magnesium Gluconate 500 MG Orally Active Estradiol 10 MCG Vaginal Act tammy Ozobqmgeky-GKXQ-Lcuarzut 50-325-40 MG 1 tablet as needed Orally Active Losartan Potassium 25 MG Orally Active Gabapentin 100 MG as directed Orally Not-Taking Camrese 0.15-0.03 &0.01 MG 1 tablet Orally Once a day; Duration: 91 day(s) Not-Drake ing Norpramin Not-Taking Piroxicam 20 MG 1 capsule with food Orally Once a day; Duration: 30 day(s) Not-Taking Gabapentin 100 MG as directed Orally Not-Taking Camrese 0.15-0.03 &0.01 MG 1 tablet Orally Once a day; Duration: 91 day(s) Not-Drake ing Vitamin D 2000 UNIT 1 tablet Orally Once a day; Duration: 30 day(s) Active Piroxicam 20 MG 1 capsule with food Orally Once a day; Duration: 30 day(s) Not-Taking Social History Alcohol Screen Question Answer Notes Did you have a drink contain ing alcohol in the past year? Yes How often did you have a dri nk containing alcohol in the past year? Monthly or less (1 point) Points 1 Interpretation Negative Tobacco use other than smoking: Question Answer Notes Are you an other tobacco user? No Problems Problem Type SNOMED Code ICD Code Onset Dates Problem Status W/U Status Risk Notes Problem Localized, primary osteoarthritis of the ankle and/or foot (831607631) Primary osteoarthrit is, right ankle and foot (M19.071) Active confirmed Problem Acquired hammer toe of right foot (5563423506112905) Other hammer toe(s) (acquired), right foot (M20.41) Active confirmed Plan Of Treatment Pending Test Test Name Order Date Tc99 3 phase Bone Scan 01/09/2019 X ray : Foot, left 3V 10/12/2011 X ray : Foot, right 3V 01/09/2019 [id number] TENDON SHEATH/LIGAMENT 0 11/02/2011 [id number] 3mg 11/02/2011 Insurance Providers Payer Name Payer Address Payer Phone Subscriber Number Group Number Insured Name Patient Relationship to Insured Coverage Start Date Coverage End Date [facility] [address] [place] [address] [id number] Self - patient is the insured Medical (General) History Medical History History ICD Code headaches/migraines mumps chicken pox Diverticulosis High blood pressure chronic sinusitis Surgical History Surgery Date(Month/Year) Hernia 1982 Hysterectomy 2012 Cervical repair, prolapse bladder 2016
== END 2025-05-15 15:40 | disposition home or self-care (01) ==
LOC: HO.HKA 15:03
PROVIDERS: PCP Internal Medicine; Visit Provider Internal Medicine Nephrology
DX: I10 Essential (primary) hypertension (principal)
CPT/HCPCS: 99214